=== PATIENT | female | born 1960 | race Caucasian/White ===

== ENCOUNTER 2019-12-24 12:20 | Outpatient (CLI) | payer MEDICARE, SELFPAY ==
[2019-12-24 13:53] LABS: Alanine Aminotransferase 14 U/L (14-59); Albumin Level 3.7 g/dL (3.4-5.0); Alkaline Phosphatase 66 U/L (46-116); Anion Gap 9.9 mmol/L (7-16); Aspartate Amino Transferase 26 U/L (15-37); Bilirubin,Total 0.3 mg/dL (0.00-1.00); Blood Urea Nitrogen 6 mg/dL (7-18); Calcium 8.9 mg/dL (8.5-10.1); Carbon Dioxide 34 mmol/L (21-32); Chloride 103 mmol/L (98-108); Estimated Glomerular Filt Rate > 60; Glucose 105 mg/dL (70-99); Osmolality Calculated 293 mOsm/kg (285-295); Potassium 3.9 mmol/L (3.5-5.1); Sodium 143 mmol/L (136-145); Thyroid Stimulating Hormone 0.99 uIU/mL (0.36-3.74); Total Protein 7.4 g/dL (6.4-8.2)
[2019-12-31 09:23] LABS: Vitamin D 25 Hydroxy 43 ng/mL (30-100)
== END 2019-12-24 12:21 | disposition home or self-care (01) ==
LOC: CHSLAB 12:22
PROVIDERS: PCP Nurse Practitioner Family; Visit Provider Nurse Practitioner Family
DX: R25.2 Cramp and spasm (principal); E03.9 Hypothyroidism, unspecified; E55.9 Vitamin D deficiency, unspecified
CPT/HCPCS: 36415; 80053; 82306; 83735; 84443

== ENCOUNTER 2020-04-04 20:26 | Emergency (ER) | payer MEDICARE, SELFPAY ==
--- NOTE | 2020-04-04 20:32 | ED.DENTAL ---
HPI - Dental/Oral General Chief complaint: Dental/Oral Stated complaint: abcess in mouth Time Seen by Provider: 04/04/20 20:32 Source: patient and RN notes reviewed Mode of arrival: ambulatory Limitations: no limitations History of Present Illness HPI Narrative: Patient noted swelling on the inner left cheek started this morning. Says is tender. Does not recall any trauma. Onset (ago): hour(s) (12) Duration: constant Severity: mild Relieving factors: nothing Exacerbating factors: other ( palpation) Treatment prior to arrival: none Related Data Home Medications Medication Instructions Recorded Confirmed albuterol sulfate 90 mcg/actuation 1 puff INHALATION Q4H PRN 10/08/19 11/06/19 aerosol inhaler budesonide 0.5 mg/2 mL suspension 0.5 mg INHALATION DAILY 10/08/19 11/06/19 for nebulization cariprazine 3 mg capsule 3 mg PO DAILY 10/08/19 11/06/19 cholecalciferol (vitamin D3) 125 5,000 unit PO DAILY 10/08/19 11/06/19 mcg (5,000 unit) capsule divalproex 500 mg tablet,delayed 500 mg PO Q12H 10/08/19 11/06/19 release fluoxetine 20 mg capsule 20 mg PO DAILY 10/08/19 11/06/19 fluticasone propionate 50 1 inhalation INHALATION Q12H 10/08/19 11/06/19 mcg/actuation blister powder for inhalation formoterol fumarate 20 mcg/2 mL 2 ml INHALATION BID 10/08/19 11/06/19 solution for nebulization hydroxyzine HCl 50 mg tablet 50 mg PO DAILY tablet 10/08/19 11/06/19 loratadine 10 mg capsule 10 mg PO DAILY 10/08/19 11/06/19 tizanidine 2 mg capsule 2 mg PO TID PRN 10/08/19 11/06/19 topiramate 25 mg sprinkle capsule 25 mg PO BID 10/08/19 11/06/19 trazodone 50 mg tablet 50 mg PO BID 10/08/19 11/06/19 Allergies Allergy/AdvReac Type Severity Reaction Status Date / Time diclofenac Allergy Severe Stopped Verified 10/16/18 21:49 Breathing Penicillins Allergy Intermediate Unknown Verified 12/30/19 15:45 Sulfa (Sulfonamide Allergy Intermediate Hives / Verified 10/16/18 21:49 Antibiotics) Red Face sulfamethoxazole [Bactrim] Allergy Intermediate Unknown Verified 12/30/19 15:45 trimethoprim [Bactrim] Allergy Intermediate Unknown Verified 12/30/19 15:45 cephalexin Allergy Unknown Unknown Verified 12/30/19 15:45 Review of Systems Review of Systems: All systems reviewed & are unremarkable except as noted in HPI and below PMFSH Past Medical History Medical History (Updated 04/04/20 @ 20:49 by Lamin Stpehen MD) COPD (chronic obstructive pulmonary disease) Depression Diffuse arthralgia SOFY (generalized anxiety disorder) GERD (gastroesophageal reflux disease) HTN (hypertension) Hyperlipidemia Hypothyroidism Migraine Shingles Stress incontinence Tobacco dependence Vitamin D deficiency Surgical History Surgical History (Updated 04/04/20 @ 20:37 by Lamin Stephen MD) H/O section H/O lumbosacral spine surgery H/O neck surgery H/O wrist surgery right H/O: hysterectomy History of surgery on arm right forearm Family History Family History Sister Family history of obesity Family history of type 2 diabetes mellitus Other Family history of arthritis Family history of malignant neoplasm Social History Social History Smoking status: Current every day smoker Alcohol intake: never Exam Const: General: healthy appearing, no acute distress and alert Nutritional Appearance: well nourished Orientation/consciousness: patient oriented x3 HENMT: Head: normal to inspection Ears: external ears normal General nose exam: Normal external nose present Face and sinus: normal facial exam Mouth: Yes lip normal and Yes Abnormal oral and palatal mucosa present vesicles ( single blood-filled blister on left. 0.7 mm in diameter) Eyes: Conjunctivae: conjunctivae normal Pupils: Equal, round and reactive pupils present EOM: EOMs intact bilaterally Neck: Neck: normal visual inspection and no lymph
[2020-04-04 20:41] VITALS: BP 157/79; PULSE 72; RESP 18; TEMP 37; O2SAT 99
--- NOTE | 2020-04-04 20:48 | PC.NURSE ---
Pt has small red blood blister to inside of left cheek
== END 2020-04-04 20:55 | disposition home or self-care (01) ==
PROVIDERS: Emergency Provider Emergency Medicine; PCP Family Medicine
DX: S00.522A Blister (nonthermal) of oral cavity, initial encounter (principal)
CPT/HCPCS: 99281; 99282

== ENCOUNTER 2020-05-19 13:34 | Outpatient (CLI) | payer MEDICARE, SELFPAY ==
--- NOTE | ~2020-05-19 | XR_ITS ---
XR shoulder RT min 2V DATE: 05/19/2020 13:52 INDICATION: Right shoulder pain. Generalized joint pain. TECHNIQUE: 4 views COMPARISON: None FINDINGS: No fracture or dislocation, periosteal reaction or bone destruction. No abnormal soft tiss ue calcification. IMPRESSION: Negative Reviewed, dictated and finalized at location B. IMPRESSION: Negative
== END 2020-05-19 13:35 | disposition home or self-care (01) ==
PROVIDERS: PCP Family Medicine; Visit Provider Family Medicine
DX: M25.511 Pain in right shoulder (principal)
CPT/HCPCS: 73030

== ENCOUNTER 2020-05-26 14:58 | Outpatient (RCR) | payer MEDICARE, MEDICAID, SELFPAY ==
--- NOTE | 2020-05-26 16:25 | PTOPEVAL ---
Thank you for referring Veronica Marcano to [facility]. Please review, sign, date and return this plan of care SARA. I agree with and certify that the following plan of care is medically necessary. Referring Physician Date Admitting Provider: Attending Provider: Stevie Catalan MD Referring Provider: *PT Outpatient Evaluation Start: 05/26/20 15:11 Freq: Status: Active Protocol: Document 05/26/20 15:11 MICHAEL (Rec: 05/26/20 15:43 MICHAEL [id number]) Therapy Assessment Status Assessment Status Assessment Status Evaluation Outpatient Past Medical History Cardiovascular History Hx Hypertension Yes Respiratory History Hx Chronic Obstructive Pulmonary Disease Yes (COPD) Hx Emphysema Yes Musculoskeletal History Hx Fibromyalgia Yes Hx Other Musculoskeletal Disorders Yes: back and neck surgery Endocrine History Hx Hypothyroidism Yes Reproductive History Hx Hysterectomy Yes Psychosocial History Hx Bipolar Disorder Yes Evaluation Information Problem Diagnosis right shoulder pain Onset 04/26/20 Cause Quick DASH score= 40 Subjective Information Pt. reports that she recalls Query Text:As Reported By Patient/ no particular incident that Family brought on shoulder pain. She describes pain in the lateral brachial region and into the right upper trapezius. She states that pain is increased with reaching out away from her body. She also describes ER movements that increase pain. She states that her goal is to decrease her right shoulder pain. Prior Level of Function Activity Level (Last 3 Months) Occupation disabled Hand Dominance Right Activity of Daily Living Ability Independent Indoor/Home Mobility Independent Community Mobility Independent Stairs Ability Independent Functional Cognition (Planning, Shopping Independent , Taking Medications) Cooking Yes Cleaning Yes Laundry Yes Shopping Yes Driving Yes Home Setting Cargiver Responsibilities Comment Pt. has recently gotten custody of her 30# great grandson and has been more active with
--- NOTE | 2020-07-05 09:15 | PTOPEVAL ---
Thank you for referring Veronica Marcano to [facility].? The patient is scheduled to be seen for therapy? ____x/week for ___ weeks. Please review, sign, date and return this plan of care SARA. I agree with and certify that the following plan of care is medically necessary. Referring Physician Date Admitting Provider: Attending Provider: Stevie Catalan MD Referring Provider: *PT Outpatient Evaluation Start: 05/26/20 15:11 Freq: Status: Active Protocol: Document 06/30/20 15:00 MICHAEL (Rec: 07/05/20 09:14 MICHAEL [id number]) Therapy Assessment Status Assessment Status Assessment Status Discharge Outpatient Past Medical History Cardiovascular History Hx Hypertension Yes Respiratory History Hx Chronic Obstructive Pulmonary Disease Yes (COPD) Hx Emphysema Yes Musculoskeletal History Hx Fibromyalgia Yes Hx Other Musculoskeletal Disorders Yes: back and neck surgery Endocrine History Hx Hypothyroidism Yes Reproductive History Hx Hysterectomy Yes Psychosocial History Hx Bipolar Disorder Yes Evaluation Information Problem Diagnosis right shoulder pain Onset 04/26/20 Subjective Information Pt. reports that her mobility Query Text:As Reported By Patient/ has improved. She reports Family that despite these improvements she still has persistant pain. She reports that she takes care of her adopted grandchild and it remains difficult due to pain. Pain Assessment Pain Scale Pain Scale Used Numeric (1 - 10) Self Report Pain Assessment Right Shoulder(s) Reported Pain Level 6 Pain Score Pain Score 6: Self Report Upper Extremity Range of Motion General Upper Extremity Range of Motion Gross Upper Extremity Range of Motion right shoulder [id number] Comments degrees right shoulder ER= 82 degrees right shoulder IR=61 degrees Upper Extremity Muscle Strength Testing General Upper Extremity Strength Gross Upper Extremity Strength Comments right shoulder flexion 4+/5 right shoulder ER 4+/5 right shoulder abduction 4+/5 Special Tests-Upper Extremity Shoulder Special Tests Speed's Test Positive Right Hawkin's Cedrick Test Positive Right General Exercise General Exercises Exercise Description -PROM x 20 minutes into Query Text:Record Sets, Reps, flexion, ER and IR Resistance, and Position -cane flexion and ER in supine x 10
== END 2020-06-30 10:15 | disposition home or self-care (01) ==
LOC: CHSPT 14:58
PROVIDERS: PCP Family Medicine; Visit Provider Family Medicine
DX: M25.511 Pain in right shoulder (principal)
CPT/HCPCS: 97014; 97110; 97140; 97161; G0283

== ENCOUNTER 2020-07-10 09:52 | Outpatient (CLI) | payer MEDICARE, MEDICAID, SELFPAY ==
--- NOTE | ~2020-07-10 | MR_ITS ---
EXAMINATION: MR shoulder RT wo con DATE: 07/10/2020 10:44 INDICATION: Right shoulder pain TECHNIQUE: Magnetic resonance imaging (MRI) of the right shoulder was performed without intravenous c ontrast. Sequences included axial PD-weighted FS FSE, coronal oblique PD-weighted FS FSE, coronal obl ique T2-weighted FS FSE, sagittal PD-weighted FS FSE, and sagittal T1-weighted SE. COMPARISON: Right shoulder radiographs dated 05/19/2020 FINDINGS: Evaluation mildly limited by some degree of motion artifact or blurring on all sequences. Coracoacromial arch: The acromion undersurface is curved in morphology (type II) with anterior downsloping and small anter ior subacromial spur. The coracoacromial ligament is normal. Moderate acromioclavicular osteoarthriti s. Rotator cuff: Mild supraspinatus tendinopathy without discrete tear. The infraspinatus, teres minor and subscapular is tendons are normal. Normal rotator cuff muscle bulk and signal. Biceps tendon, glenoid labrum and glenohumeral cartilage: Long head of the biceps tendon is normal. Small marginal osteophytes along the posterior inferior gle noid glenoid with likely chronic labral degeneration with diminutive posterior to posterior inferior labrum and with amorphous increased signal at the inferior labrum. More well-defined linear tear at t he anteroinferior labrum. Glenohumeral cartilage appears relatively preserved with assessment for mor e subtle chondromalacia limited by motion. Fluid: Physiologic amount of fluid in the glenohumeral joint and biceps tendon sheath. No loose osteochondra l bodies. No abnormal fluid signal in the subacromial/subdeltoid bursa to suggest bursitis. Bones: Normal marrow signal with no edema, fracture or abnormal marrow replacing process. IMPRESSION: 1. Mild glenohumeral osteoarthritis with anteroinferior labral tear and more severe degenerative tear ing of the inferior to posterior labrum. 2. Moderate acromioclavicular osteoarthritis. 3. Mild supraspinatus tendinopathy without discrete tear. Reviewed, dictated and finalized at location B. IMPRESSION: 1. Mild glenohumeral osteoarthritis with anteroinferior labral tear and more se gabby degenerative tearing of the inferior to posterior labrum. 2. Moderate acromioclavicular osteoarthritis. 3. Mild supraspinatus tendinopathy without discrete tear.
== END 2020-07-10 09:53 | disposition home or self-care (01) ==
LOC: CHSIMG 09:55
PROVIDERS: PCP Family Medicine; Visit Provider Family Medicine
DX: M25.511 Pain in right shoulder (principal)
CPT/HCPCS: 73221

== ENCOUNTER 2020-07-29 13:54 | Outpatient (CLI) | payer MEDICARE, MEDICAID, SELFPAY ==
--- NOTE | ~2020-07-29 | MM_ITS ---
EXAMINATION: MM screening denise BI w mandy HISTORY: Screening mammogram TECHNIQUE: Craniocaudal and mediolateral oblique 3-D tomosynthesis images were obtained and synthetic 2-D images were generated. CAD analysis was submitted and interpreted. COMPARISON: 07/04/2017 bilateral digital screening mammogram BREAST PARENCHYMAL COMPOSITION: There are scattered areas of fibroglandular density. FINDINGS: There is a biopsy marker on each side. There are bilateral benign calcifications as well as arterial calcifications. There is no evidence of suspicious mass, calcification, or architectural di stortion to suggest malignancy in either breast. There has been no suspicious interval change. IMPRESSION: 1. No mammographic evidence of malignancy. 2. Recommend routine screening mammography in one year. BI-RADS Category 2: Benign finding(s). Reviewed, dictated and finalized at location A.
--- NOTE | ~2020-07-29 | CT_ITS ---
EXAMINATION:CT lung screening DATE: 07/29/2020 14:22 INDICATION: Personal history of tobacco dependence. Smoker with 40 pack year history who quit less th an 1 year ago. TECHNIQUE: Computed tomography (CT) of the chest was performed without intravenous contrast. Automate d exposure control and iterative reconstruction technique were employed. The dose-length product (DLP ) was 67.11 mGy-cm. COMPARISON: Chest CT 01/19/2016 FINDINGS: There is mild scarring at the lung apices. There is mild emphysema. There is a 5 mm nodule in inferior lingula. There is a 7 mm nodule in inferior lingula. There are a few scattered nodules me asuring up to 3 mm. No pleural effusion. The heart size is normal. No pericardial effusion. There are coronary artery calcifications. There are changes of cholecystectomy. There is moderate thoracic spo ndylosis. IMPRESSION: 1. Lung-RADS category 4A: Suspicious. Noncontrast, low-dose chest CT is recommended in 3 months. Reviewed, dictated and finalized at location A. IMPRESSION: 1. Lung-RADS category 4A: Suspicious. Noncontrast, low-dose chest CT is recomme nded in 3 months.
== END 2020-07-29 13:55 | disposition home or self-care (01) ==
LOC: CHSIMG 13:55
PROVIDERS: PCP Family Medicine; Visit Provider Family Medicine
DX: Z12.31 Encounter for screening mammogram for malignant neoplasm of breast (principal); Z12.2 Encounter for screening for malignant neoplasm of respiratory organs; Z87.891 Personal history of nicotine dependence
CPT/HCPCS: 77063; 77067; G0297

== ENCOUNTER 2020-08-06 08:36 | Outpatient (CLI) | payer MEDICARE, MEDICAID, SELFPAY ==
[2020-08-07 02:12] LABS: SARS-CoV-2 RNA PCR Negative
== END 2020-08-06 08:37 | disposition home or self-care (01) ==
LOC: CHSLAB 08:39
PROVIDERS: PCP Family Medicine; Visit Provider Family Medicine
DX: R05 Cough (principal); Z20.828 Contact with and (suspected) exposure to other viral communicable diseases
CPT/HCPCS: 87635; C9803; U0003

== ENCOUNTER 2020-12-29 10:36 | Outpatient (CLI) | payer MEDICARE, MEDICAID, SELFPAY ==
--- NOTE | ~2020-12-29 | CT_ITS ---
EXAMINATION: CT diagnostic chest wo con DATE: 12/29/2020 10:59 INDICATION: Lung nodule TECHNIQUE: Computed tomography (CT) of the chest was performed without intravenous contrast. The dose -length product (DLP) was 66.38 mGy-cm. Automated exposure control and iterative reconstruction techn ique were employed. COMPARISON: 07/29/2020 FINDINGS: The previously described lingular nodules are no longer evident, consistent with resolved i nfection/inflammation. No new or suspicious pulmonary nodules are identified. There are multiple scat tered pulmonary nodules measuring up to 3 mm. The lungs are free of acute opacities. There is no pleu ral effusion or pneumothorax. There is mild emphysema. Calcified coronary artery atherosclerosis is n oted. There is moderate thoracic spondylosis. IMPRESSION: 1. Resolved lingular nodules, consistent with resolved infection/inflammation. Low-dose screening suleiman g CT in one year is recommended. Reviewed, dictated and finalized at location A. [employer]ATING IMPRESSION: 1. Resolved lingular nodules, consistent with resolved infection/inflammation. Low-dose screening lung CT in one year is recommended.
== END 2020-12-29 10:37 | disposition home or self-care (01) ==
PROVIDERS: PCP Family Medicine; Visit Provider Family Medicine
DX: R91.1 Solitary pulmonary nodule (principal)
CPT/HCPCS: 71250

== ENCOUNTER 2021-01-06 14:06 | Outpatient (CLI) | payer MEDICARE, MEDICAID, SELFPAY ==
--- NOTE | ~2021-01-06 | XR_ITS ---
EXAMINATION: XR thoracic spine 3V DATE: 01/06/2021 14:48 INDICATION: Dorsalgia, unspecified. TECHNIQUE: 3 views of thoracic spine were obtained. COMPARISON: Thoracic spine radiographs 11/21/2018 FINDINGS: There is 7 degrees dextrocurvature of thoracic spine. There is kyphosis of thoracic spine. Vertebral body heights are normal. There is mildly decreased disc height at multiple levels in mid th oracic spine. There are endplate osteophytes at most levels. There are changes of anterior fusion pro cedures in cervical spine with anterior plate and screws. IMPRESSION: 1. Mild thoracic spondylosis. Reviewed, dictated and finalized at location A. TLE PREPARATION SUPERVISOR
--- NOTE | ~2021-01-06 | XR_ITS ---
EXAMINATION: XR_CERV2-3V_CR DATE: 01/06/2021 14:48 INDICATION: Cervical radiculopathy. TECHNIQUE: 3 views of cervical spine were obtained. COMPARISON: None. FINDINGS: Bone alignment is normal. Vertebral body heights are normal. There are changes of anterior fusion procedure at C4-C5 with healed interbody bone graft and anterior plate and screws. There is mo derately decreased disc height at C3-C4 and C6-C7 and severely decreased disc height at C5-C6. There is multilevel uncovertebral joint osteoarthritis, severe bilaterally at C3-C4, C5-C6, and C6-C7. Ther e is multilevel mild facet joint osteoarthritis. There is mild central canal stenosis at C3-C4, C5-C6 , and C6-C7. No prevertebral soft tissue swelling. IMPRESSION: 1. Severe cervical spondylosis. 2. Anterior fusion procedure at C4-C5. Reviewed, dictated and finalized at location A. ALL OPERATOR
== END 2021-01-06 14:07 | disposition home or self-care (01) ==
LOC: CHSIMG 14:08
PROVIDERS: PCP Family Medicine; Visit Provider Family Medicine
DX: M54.13 Radiculopathy, cervicothoracic region (principal); M54.9 Dorsalgia, unspecified
CPT/HCPCS: 72040; 72072

== ENCOUNTER 2021-01-11 13:55 | Outpatient (RCR) | payer MEDICARE, MEDICAID, SELFPAY ==
--- NOTE | 2021-01-11 15:14 | PTOPEVAL ---
Thank you for referring Veronica Marcano to [facility].? The patient is scheduled to be seen for therapy? __2__x/week for 8 visits. Please review, sign, date and return this plan of care SARA. I agree with and certify that the following plan of care is medically necessary. Referring Physician Date Admitting Provider: Attending Provider: Stevie Catalan MD Referring Provider: *PT Outpatient Evaluation Start: 01/11/21 12:49 Freq: Status: Active Protocol: Document 01/11/21 14:09 ACR (Rec: 01/11/21 15:13 ACR [id number]) Therapy Assessment Status Assessment Status Assessment Status Evaluation Outpatient Past Medical History Cardiovascular History Hx Hypertension Yes Respiratory History Hx Chronic Obstructive Pulmonary Disease Yes (COPD) Hx Emphysema Yes Musculoskeletal History Hx Fibromyalgia Yes Hx Other Musculoskeletal Disorders Yes: back and neck surgery Endocrine History Hx Hypothyroidism Yes Reproductive History Hx Hysterectomy Yes Psychosocial History Hx Bipolar Disorder Yes Evaluation Information Problem Diagnosis L neck and upper back pain Onset 01/30/20 Subjective Information Patient states that she Query Text:As Reported By Patient/ started having neck and upper Family back pain for about a year, but 6 months ago really started bothering her by waking her up at night. Patient went to [facility] and received x-ray which was positive for DDD. She is having radicular pain that causes the entire arm to become numb. She is having difficulty reading, driving ( only when she holds the steering wheel at lower), lifting her great grandson, or lifting groceries. Patient takes NSAIDs and anti inflammatories in the morning which helps throughout the day . Prior Level of Function Activity Level (Last 3 Months) Occupation retired Hand Dominance Right Activity of Daily Living Ability Independent Indoor/Home Mobility Independent Community Mobility Independent Stairs Ability Independent Functional Cognition (Planning, Shopping Independent , Taking Medications)
--- NOTE | 2021-03-03 08:30 | PCPTNOTE ---
The patient participated in 3 visits for neck pain. The patient would like to be discharged at this time due to a hectic schedule. Please refer to last treatment note for patient's discharge status. Thank you, CATRACHO LiT
== END 2021-01-25 09:13 | disposition home or self-care (01) ==
LOC: CHSPT 13:55
PROVIDERS: PCP Family Medicine; Visit Provider Family Medicine
DX: M54.2 Cervicalgia (principal); M54.6 Pain in thoracic spine; M54.13 Radiculopathy, cervicothoracic region
CPT/HCPCS: 97014; 97110; 97140; 97161; G0283

== ENCOUNTER 2021-03-14 11:37 | Outpatient (CLI) | payer MEDICARE, OTHER, SELFPAY ==
--- NOTE | ~2021-03-14 | XR_ITS ---
EXAMINATION: XR foot LT min 3V DATE: 03/14/2021 12:33 INDICATION: Left foot pain. TECHNIQUE: 4 views of left foot were obtained. COMPARISON: Left foot radiographs 08/22/2017 FINDINGS: Bone alignment is normal. No fracture. There is mild osteoarthritis of first metatarsophala ngeal joint and many of the interphalangeal joints and midfoot joints. There are enthesophytes at the posterior and plantar aspects of calcaneal tuberosity. IMPRESSION: 1. Mild polyarticular osteoarthritis. Reviewed, dictated and finalized at location A.
== END 2021-03-14 11:38 | disposition home or self-care (01) ==
LOC: CHSIMG 11:40
PROVIDERS: PCP Family Medicine; Visit Provider Family Medicine
DX: M79.672 Pain in left foot (principal); M15.9 Polyosteoarthritis, unspecified
CPT/HCPCS: 73630

== ENCOUNTER 2021-08-01 11:53 | Outpatient (CLI) | payer MEDICARE, MEDICAID, SELFPAY ==
[2021-08-01 13:50] LABS: SARS-CoV-2 RNA PCR Negative (Negative)
== END 2021-08-01 11:54 | disposition home or self-care (01) ==
LOC: CHSLAB 11:56
PROVIDERS: PCP Family Medicine; Visit Provider Family Medicine
DX: R05 Cough (principal); Z20.822 Contact with and (suspected) exposure to COVID-19
CPT/HCPCS: C9803; U0003; U0005

== ENCOUNTER 2021-08-03 09:47 | Outpatient (CLI) | payer MEDICARE, MEDICAID, SELFPAY ==
--- NOTE | ~2021-08-03 | MM_ITS ---
EXAMINATION: MM screening denise BI w mandy HISTORY: Screening mammogram TECHNIQUE: Craniocaudal and mediolateral oblique 3-D tomosynthesis images were obtained and synthetic 2-D images were generated. CAD analysis was submitted and interpreted. COMPARISON: 07/29/2020, bilateral digital screening mammogram examinations BREAST PARENCHYMAL COMPOSITION: There are scattered areas of fibroglandular density. FINDINGS: Bilateral benign calcifications are present. There is a biopsy marker on each side. There i s no evidence of suspicious mass, calcification, or architectural distortion to suggest malignancy in either breast. There has been no suspicious interval change. IMPRESSION: 1. No mammographic evidence of malignancy. 2. Recommend routine screening mammography in one year. BI-RADS Category 2: Benign finding(s). Reviewed, dictated and finalized at location A.
== END 2021-08-03 09:48 | disposition home or self-care (01) ==
LOC: CHSIMG 09:49
PROVIDERS: PCP Family Medicine; Visit Provider Family Medicine
DX: Z12.31 Encounter for screening mammogram for malignant neoplasm of breast (principal)
CPT/HCPCS: 77063; 77067

== ENCOUNTER 2021-08-05 22:25 | Emergency (ER) | payer MEDICARE, MEDICAID, SELFPAY ==
--- NOTE | ~2021-08-05 | XR_ITS ---
EXAMINATION: XR chest 2V DATE: 08/05/2021 23:22 INDICATION: Cough and midsternal chest pain TECHNIQUE: PA and lateral views of the chest were obtained. COMPARISON: Chest CT dated 12/29/2020 FINDINGS: The lungs are clear with no focal airspace opacities, pulmonary edema, pleural effusion or pneumothor ax. The cardiomediastinal silhouette is normal. Mild to moderate thoracic spondylosis. Plate-screw fi xation for a lower cervical anterior spinal fusion. Cholecystectomy clips in the upper abdomen. IMPRESSION: 1. No acute cardiopulmonary disease. Reviewed, dictated and finalized at location A.
--- NOTE | 2021-08-05 22:51 | ECG_ITS ---
Measurements Intervals [place] Rate: 51 P: 70 NE: 151 QRS: 23 QRSD: 86 T: 35 QT: 475 QTc: 441 Interpretive Statements SINUS BRADYCARDIA BASELINE ARTIFACT- I, III BORDERLINE ECG Electronically Signed On 08-06-2021 6:36:09 CDT by Carlos Neal D.O.
--- NOTE | 2021-08-05 23:18 | ED.GENADULT ---
HPI - General Adult General Chief complaint: Upper Respiratory Infection Stated complaint: possible pneumonia Source: patient Mode of arrival: ambulatory Limitations: no limitations History of Present Illness HPI narrative: Pt states that she had a cough for last 5 days, she was put on antibiotics and steriods from her pcp. She just took her last dose of antibiotics today, and started steroids yesterday. Tonight she got a familir discomfort in her chest when she takes deep breaths. SHe has had this pain before when she had pneumonia. SHe has not had a fever, but she doesnt feel good. No nausea vomiting, tolerating POs. She has had body aches and back pain, but that is pretty normal for her due to fibromyalgia. Onset (ago): day(s) (5) Location: chest Severity: mild Quality: burning Pain Consistency: intermittent Associated symptoms: chest pain, cough, malaise and shortness of breath (mild) Related Data Home Medications Medication Instructions Recorded Confirmed divalproex 500 mg tablet,delayed 500 mg PO DAILY 10/08/19 08/05/21 release tizanidine 2 mg capsule 2 mg PO TID PRN 10/08/19 08/05/21 trazodone 50 mg tablet 50 mg PO BID 10/08/19 08/05/21 buspirone 5 mg PO BID 08/05/21 08/05/21 buspirone 10 mg PO HS 08/05/21 08/05/21 cariprazine [Vraylar] 1.5 mg PO HS 08/05/21 08/05/21 gabapentin 100 mg PO DAILY 08/05/21 08/05/21 gabapentin 800 mg PO DAILY 08/05/21 08/05/21 omeprazole 40 mg PO Q12H 08/05/21 08/05/21 oxycodone 10 mg PO BID 08/05/21 08/05/21 Allergies Allergy/AdvReac Type Severity Reaction Status Date / Time diclofenac Allergy Severe Stopped Verified 10/16/18 21:49 Breathing Penicillins Allergy Intermediate Unknown Verified 12/30/19 15:45 Sulfa (Sulfonamide Allergy Intermediate Hives / Verified 10/16/18 21:49 Antibiotics) Red Face sulfamethoxazole [Bactrim] Allergy Intermediate Unknown Verified 12/30/19 15:45 trimethoprim [Bactrim] Allergy Intermediate Unknown Verified 12/30/19 15:45 cephalexin Allergy Unknown Unknown Verified 12/30/19 15:45 Review of Systems Constitutional: Constitutional: Reports fatigue Eyes: Eyes: Reports no additional eye complaints ENT: Reports nasal congestion Cardiovascular: Cardiovascular: Reports chest pain, Denies rapid heart rate, Denies radiating jaw, neck or arm pain and Denies slow heart rate Gastrointestinal: Gastrointestinal: Reports no additional gastrointestinal complaints Genitourinary: Genitourinary: Reports no additional female genitourinary complaints Musculoskeletal: Musculoskeletal: Reports myalgias and Reports arthralgias Comments: normally has this Psychiatric: Psychiatric: Reports no additional psychiatric complaints Endocrine: Endocrine: Reports no additional endocrine complaints and Reports fatigue Hematologic/Lymphatic: Hematologic/Lymphatic: Reports no additional hematologic/lymphatic complaints Allergic/Immunologic: Allergic/Immunologic: Reports no additional allergic/immunologic complaints PMFSH Past Medical History Medical History COPD (chronic obstructive pulmonary disease) Depression Diffuse arthralgia Fibromyalgia SOFY (generalized anxiety disorder) GERD (gastroesophageal reflux disease) HTN (hypertension) Hyperlipidemia Hypothyroidism Migraine Shingles Stress incontinence Tobacco dependence Vitamin D deficiency Surgical History Surgical History H/O section H/O lumbosacral spine surgery H/O neck surgery H/O wrist surgery right H/O: hysterectomy History of surgery on arm right forearm Family History Family History Sister Family history of obesity Family history of type 2 diabetes mellitus Other Family history of arthritis Family history of malignant neoplasm Social History Social History (Reviewed 08/05/21 @ 23:23 by July
[2021-08-05 23:23] LABS: Basophils Absolute Auto 0.02 K/mm3 (0.00-0.10); Basophils Percent Auto 0.3 % (0.0-1.0); Eosinophils Absolute Auto 0.02 K/mm3 (0.02-0.50); Eosinophils Percent Auto 0.3 % (1.0-6.0); Hematocrit 35.5 % (35.0-49.0); Hemoglobin 11.5 g/dL (12.0-15.0); Immature Granulocyte Absolute 0.02 K/mm3 (0.00-0.00); Immature Granulocyte Percent A 0.3 % (0.0-0.0); Lymphocytes Absolute Auto 1.25 K/mm3 (1.10-4.50); Lymphocytes Percent Auto 17.7 % (18.0-42.0); Mean Corpuscular HGB Conc 32.4 g/dL (32.0-36.0); Mean Corpuscular Hemoglobin 29.3 pg (27.0-31.0); Mean Corpuscular Volume 90.3 fL (78.0-102.0); Mean Platelet Volume 10.2 fl (9.2-11.8); Monocytes Absolute Auto 0.52 K/mm3 (0.10-0.90); Monocytes Percent Auto 7.4 % (2.0-11.0); Neutrophils Absolute Auto 5.2 K/mm3 (1.7-7.2); Platelet Count Result 170 K/mm3 (150-420); Red Blood Count 3.93 M/mm3 (4.20-5.40); Red Cell Distribution Width 11.7 % (11.6-14.4); White Blood Count 7.1 K/mm3 (4.8-10.8)
[2021-08-05 23:31] VITALS: BP 109/54; PULSE 58; RESP 18; TEMP 36.6; O2SAT 98
[2021-08-05 23:45] LABS: SARS-CoV-2 Ag Negative (Negative)
[2021-08-05] MEDS: ACETAMINOPHEN 500 MG TABLET 1000 MG PO (23:46)
[2021-08-05] MEDS: IPRATROPIUM 0.5 MG/ALBUTEROL SULFATE 2.5 MG AMPUL.NEB 3 ML INHALATION (23:46)
[2021-08-05] MEDS: SODIUM CHLORIDE 0.9% 3 ML NEB FOR INHALATION (23:47)
[2021-08-05 23:48] VITALS: PULSE 54; RESP 20; O2SAT 98
[2021-08-05 23:48] LABS: Alanine Aminotransferase 16 U/L (14-59); Albumin Level 3.1 g/dL (3.4-5.0); Alkaline Phosphatase 66 U/L (46-116); Anion Gap 9 mmol/L (8-16); Aspartate Amino Transferase 10 U/L (15-37); Bilirubin,Total 0.2 mg/dL (0.00-1.00); Blood Urea Nitrogen 13 mg/dL (7-18); Calcium 8.3 mg/dL (8.5-10.1); Carbon Dioxide 31 mmol/L (21-32); Chloride 105 mmol/L (98-108); Estimated CRCL calculation 66 ml/min; Estimated Glomerular Filt Rate > 60; Glucose 115 mg/dL (70-99); NT Pro B Type Natriuretic Pept 548 pg/mL (0-125); Osmolality Calculated 301 mOsm/kg (285-295); Potassium 3.8 mmol/L (3.5-5.1); Sodium 145 mmol/L (136-145); Total Protein 6.2 g/dL (6.4-8.2); Troponin I 5.8 ng/L (0.00-60.4)
[2021-08-06 00:23] LABS: SARS-CoV-2 RNA PCR Negative (Negative)
[2021-08-06 00:27] VITALS: BP 109/70; PULSE 54; RESP 20; TEMP 36.3; O2SAT 97
[2021-08-06 00:28] VITALS: PULSE 54; RESP 18; O2SAT 98
--- NOTE | 2021-08-06 00:38 | PC.NURSE ---
patient walking out door after discharge. and stopped, wants a DDimer
[2021-08-06 00:50] LABS: D Dimer 0.47 mg/L (0.19-0.50)
[2021-08-06 00:54] VITALS: BP 108/70; PULSE 55; RESP 22; O2SAT 98
== END 2021-08-06 00:57 | disposition home or self-care (01) ==
PROVIDERS: Emergency Provider Emergency Medicine; PCP Family Medicine
DX: J44.9 Chronic obstructive pulmonary disease, unspecified (principal); Z20.822 Contact with and (suspected) exposure to COVID-19; K21.9 Gastro-esophageal reflux disease without esophagitis; R06.02 Shortness of breath; I10 Essential (primary) hypertension; E78.5 Hyperlipidemia, unspecified; E03.9 Hypothyroidism, unspecified; E55.9 Vitamin D deficiency, unspecified; F17.200 Nicotine dependence, unspecified, uncomplicated
CPT/HCPCS: 36415; 71046; 80053; 83880; 84484; 85025; 85380; 87040; 87426; 93005; 99283; 99284; A9270; C9803; U0003; U0005

== ENCOUNTER 2021-12-01 09:42 | Outpatient (CLI) | payer MEDICARE, MEDICAID, SELFPAY ==
--- NOTE | ~2021-12-01 | CT_ITS ---
EXAMINATION: CT lumbar spine wo [facility] EXAM DATE: 12/01/2021 10:15 INDICATION: hypoesthesia lumbar radiculopathy, lumbar surg 2002 TECHNIQUE: Spiral CT of the lumbar spine was performed without contrast. Axial, coronal and sagittal images lumbar spine were reviewed. The dose-length product (DLP) for this examination was 201.65 mG y-cm. The exposure was tailored according to patient size (auto mA exposure control), and iterative reconstruction (ASIR) was used as additional dose reduction technique. Comparison is made to prior e xamination from 04/10/2018. FINDINGS: L5-S1 posterior fusion, probable interbody fusion and laminotomies. Hardware intact and no lucency surrounding the screws. There is moderate disc disease T12-L4. There is 2 mm retrolisthesis T 12 on L1, 3 mm retrolisthesis L1 on L2 and L2 on L3. There are no acute fractures identified. Paraspi nal soft tissue is unremarkable. Level by level evaluation: T12-L1: There is a mild diffuse disc bulge. Facet arthropathy: Mild. Neural foraminal stenosis: No stenosis. Central canal stenosis: No stenosis. L1-L2: There is a mild diffuse disc bulge. Facet arthropathy: Mild to moderate. Neural foraminal stenosis: Moderate bilateral. Central canal stenosis: Mild. L2-L3: There is a mild diffuse disc bulge. Facet arthropathy: Moderate. Neural foraminal stenosis: Mild to moderate right, mild left. Central canal stenosis: Mild to moderate. L3-L4: There is a mild to moderate diffuse disc bulge. Facet arthropathy: Moderate to severe. Neural foraminal stenosis: Mild bilateral. Central canal stenosis: Moderate to severe. L4-L5: There is a mild diffuse disc bulge. Facet arthropathy: Moderate to severe. Neural foraminal stenosis: No stenosis. Central canal stenosis: No stenosis. L5-S1: This level is fused. Facet arthropathy: Moderate. Neural foraminal stenosis: No stenosis. Central canal stenosis: No stenosis. Progression lumbar spondylosis compared to prior study, including the L3-4 Central canal stenosis IMPRESSION: 1. L3-4 moderate to severe central canal stenosis. 2. Advanced mid lumbar facet arthropathy. Reviewed, dictated and finalized at location B. ABILITY MANAGER
--- NOTE | ~2021-12-01 | CT_ITS ---
EXAMINATION: CT brain wo con DATE: 12/01/2021 10:16 INDICATION: Hypesthesia of the skin. Cervical radiculopathy. TECHNIQUE: Computed tomography (CT) of the head was performed without intravenous contrast. The mA wa s adjusted according to patient size. Iterative reconstruction technique was employed. Exam dose: 20 1.65 mGy-cm total exam DLP. COMPARISON: None FINDINGS: No intracranial mass lesion or hemorrhage or cerebrovascular accident. No midline shift or mass effect. No subdural or epidural hematoma. There is chronic high density soft tissue thickening in the posterior left sphenoid sinus. The paran cj sinuses and mastoid air cells are otherwise unremarkable. No fracture or bone destruction of the skull. IMPRESSION: No significant intracranial abnormality Reviewed, dictated and finalized at Location A. Reviewed, dictated and finalized at location A. TICS PROCESS HAND
--- NOTE | ~2021-12-01 | CT_ITS ---
EXAMINATION: CT cervical spine wo con EXAM DATE: 12/01/2021 10:14 INDICATION: Hypoesthesia cervical radiculopathy, cervical surg 2002 . TECHNIQUE: Spiral CT of the cervical spine was performed without contrast. Axial images were reviewe d. Coronal and sagittal reformatted images cervical spine were also reviewed. The dose-length produc t (DLP) for this examination was 201.65 mGy-cm. The exposure was tailored according to patient size (auto mA exposure control), and iterative reconstruction (ASIR) was used as additional dose reduction technique. There is no prior study for comparison. FINDINGS: Anterior and interbody fusion C4-5 with solid bone bridging. Moderate to severe disc disea se C5-6 and 6-7, moderate at C3-4. There are no acute fractures identified. The odontoid process is i ntact. The lateral masses of C1 line up with C2. The vertebral bodies are aligned in the AP dimensio n. Paraspinal soft tissue is unremarkable. Mild carotid calcification, arterial sclerotic disease, with unknown amount of additional atherosclerotic disease. Consider correlating with carotid ultraso und. Level by level evaluation: C2-C3: Disc does not extend beyond the endplate margin. Uncovertebral joint arthropathy: None. Facet joint arthropathy: Mild to moderate left. Neural foraminal stenosis: No stenosis. Central canal stenosis: No stenosis. C3-C4: There is a mild diffuse disc bulge. Uncovertebral joint arthropathy: Mild to moderate right, mild left. Facet joint arthropathy: Mild to moderate bilateral. Neural foraminal stenosis: Mild right. Central canal stenosis: Mild. C4-C5: This level is fused. Uncovertebral joint arthropathy: Mild left. Facet joint arthropathy: Mild bilateral. Neural foraminal stenosis: No stenosis. Central canal stenosis: No stenosis. C5-C6: There is a mild to moderate diffuse disc bulge. Uncovertebral joint arthropathy: Moderate left, mild to moderate right. Facet joint arthropathy: Mild to moderate bilateral. Neural foraminal stenosis: Moderate left, mild to moderate right. Central canal stenosis: Mild. C6-C7: There is a mild to moderate diffuse disc bulge. Uncovertebral joint arthropathy: Moderate left, mild to moderate right. Facet joint arthropathy: Mild to moderate bilateral. Neural foraminal stenosis: Mild to moderate left, mild right. Central canal stenosis: Mild. C7-T1: Disc does not extend beyond the endplate margin. Uncovertebral joint arthropathy: None. Facet joint arthropathy: Mild. Neural foraminal stenosis: No stenosis. Central canal stenosis: No stenosis. IMPRESSION: 1. Overall moderate cervical spondylosis. 2. Intact fusion C4-5. 3. Mild carotid calcification, consider ultrasound. Reviewed, dictated and finalized at location B. ETICS MACHINE OPERATOR
== END 2021-12-01 09:43 | disposition home or self-care (01) ==
LOC: CHSIMG 09:47
PROVIDERS: PCP Family Medicine; Visit Provider Family Medicine
DX: M54.12 Radiculopathy, cervical region (principal); R20.1 Hypoesthesia of skin; M54.16 Radiculopathy, lumbar region
CPT/HCPCS: 70450; 72125; 72131

== ENCOUNTER 2021-12-07 09:23 | Outpatient (CLI) | payer MEDICARE, MEDICAID, SELFPAY ==
--- NOTE | ~2021-12-07 | US_ITS ---
EXAMINATION: US carotid duplex BI EXAM DATE: 12/07/2021 09:41 INDICATION: Narrowing Of Carotid Arteries . TECHNIQUE: Grayscale, color and pulsed Doppler images of the cervical carotid arteries were obtained . The degree of vessel stenosis is placed in one of the following categories: normal, <50% stenosis, 50-69% stenosis, >=70% stenosis but less than near-occlusion, near-occlusion, or occlusion. Note that percent stenosis relative to normal distal artery lumen diameter is indirectly measured from velocit y measurements as described by Asif, et al. Radiology 2003; 229:340-346. There is no prior study fo r comparison. FINDINGS: RIGHT SIDE: Right common carotid artery peak systolic velocity (PSV in cm/s): 103 Right bulb/internal carotid artery peak systolic velocity (PSV in cm/s): 115 Right internal carotid artery end diastolic velocity (EDV in cm/s): 37 Right ICA/CCA peak systolic ratio: 1.1 Right external carotid artery peak systolic velocity (PSV in cm/s): 74 Right vertebral artery antegrade flow: yes There is mild carotid bulb plaque. Velocity and Doppler waveforms in the common and internal carotid arteries is normal. LEFT SIDE: Left common carotid artery peak systolic velocity (PSV in cm/s): 115 Left bulb/internal carotid artery peak systolic velocity (PSV in cm/s): 155 Left internal carotid artery end diastolic velocity (EDV in cm/s): 42 Left ICA/CCA peak systolic ratio: 1.4 Left external carotid artery peak systolic velocity (PSV in cm/s): 108 Left vertebral artery antegrade flow: yes There is mild carotid bulb plaque. Velocity and Doppler waveforms in the common and internal carotid arteries is normal. IMPRESSION: 1. Less than 50 percent stenosis in the right internal carotid artery. 2. Less than 50 percent stenosis in the left internal carotid artery. Reviewed, dictated and finalized at location A. ON BLOCKMAKER
[2021-12-07 14:04] LABS: SARS-CoV-2 Ag Positive (Negative)
[2021-12-07 14:05] LABS: Influenza Control Valid (Valid)
== END 2021-12-07 09:24 | disposition home or self-care (01) ==
PROVIDERS: PCP Family Medicine; Visit Provider Family Medicine
DX: U07.1 COVID-19 (principal); J00 Acute nasopharyngitis [common cold]; I65.29 Occlusion and stenosis of unspecified carotid artery
CPT/HCPCS: 87426; 87804; 93880; C9803

== ENCOUNTER 2021-12-08 13:11 | Outpatient (CLI) | payer MEDICARE, OTHER, SELFPAY | END 2021-12-08 13:12 | disposition home or self-care (01) | LOC: CHSTREATRM 13:13 | PROVIDERS: PCP Family Medicine; Visit Provider Family Medicine | DX: U07.1 COVID-19 (principal); I10 Essential (primary) hypertension; J44.9 Chronic obstructive pulmonary disease, unspecified | CPT/HCPCS: 99199 ==